=== PATIENT | female | born 1960 | race American Indian/Alaskan Native ===

== ENCOUNTER 2018-02-03 12:09 | Emergency (ER) | payer MEDICAID, OTHER ==
[2018-02-03 12:09] VITALS: BMI 40.8
[2018-02-03 12:17] VITALS: RESP 18
[2018-02-03] MEDS ORDERED: Sodium Chloride 0.9% 1,000 ML IV SCH (12:45)
--- NOTE | 2018-02-03 12:45 | ED PDOC ---
Arrival/HPI - General Historian: Patient - History of Present Illness Time/Duration: Prior to Arrival Symptom Onset: Sudden Symptom Course: Unchanged Context: Home (after eating dinner) <Waldo Stratton - Last Filed: 02/03/18 18:19> <BartReji - Last Filed: 02/03/18 22:28> - General Chief Complaint: GI Problem Time Seen by Provider: 02/03/18 12:26 - History of Present Illness Narrative History of Present Illness (Text): 02/03/18 12:40 Patient is a 57 F with history of hypertension who presents with complaints of nausea, vomiting, diarrhea, weakness, lightheadedness and chills after eating shrimp parmesan 02/01 at 8 p.m. Patient states prior to this meal she felt fine however after consuming the meal, she experienced 4 episodes of vomiting and 4- 5 episodes of diarrhea. Patient is unaware of appearance of diarrhea stating she never looked. The following day patient states she only consumed warm water and crackers which caused her to vomit 3 more times and have another 4 episodes of diarrhea. Today patient woke up and had diarrhea twice despite taking immodium. Being that she did not eat she has not vomited however remains nauseous. [employer] weak at work and decided to come to the emergency department today since this is going on the third day. (Waldo Stratton) Past Medical History - Provider Review Nursing Documentation Reviewed: Yes - Infectious Disease Hx of Infectious Diseases: None - Tetanus Immunization Tetanus Immunization: Unknown - Past Medical History Past Medical History: No Previous - Cardiac Hx Hypertension: Yes - Psychiatric Hx Depression: No Hx Emotional Abuse: No Hx Physical Abuse: No Hx Substance Use: No - Surgical History Hx Cholecystectomy: Yes (1985) - Suicidal Assessment Feels Threatened In Home Enviroment: No <Waldo Stratton - Last Filed: 02/03/18 18:19> Family/Social History - Physician Review Nursing Documentation Reviewed: Yes Family/Social History: Hypertension, Neoplasm/Cancer (mother-lung cancer) Smoking Status: Light Smoker < 10 Cigarettes Daily Hx Alcohol Use: Yes Hx Substance Use: No Hx Substance Use Treatment: No <Waldo Stratton - Last Filed: 02/03/18 18:19> Allergies/Home Meds <Waldo Stratton - Last Filed: 02/03/18 18:19> <Reji Arriaga - Last Filed: 02/03/18 22:28> Allergies/Adverse Reactions: Allergies No Known Allergies Allergy (Verified 02/03/18 12:18) Review of Systems - Physician Review All systems were reviewed & negative as marked: Yes - Review of Systems Constitutional: Normal. absent: Fevers, Night Sweats Eyes: Normal. absent: Vision Changes Respiratory: Normal. absent: SOB, Cough Cardiovascular: Normal. absent: Chest Pain, Palpitations Gastrointestinal: Abdominal Pain, Diarrhea, Nausea, Vomiting Genitourinary Female: absent: Dysuria Musculoskeletal: Normal. absent: Back Pain Neurological: Other (lightheaded). absent: Headache Endocrine: Other (feels "clammy") Hemo/Lymphatic: Normal Psychiatric: Normal <Waldo Stratton - Last Filed: 02/03/18 18:19> Physical Exam Vital Signs Reviewed: Yes Temperature: Afebrile Blood Pressure: Normal Pulse: Bradycardic Respiratory Rate: Normal Appearance: Positive for: Well-Appearing, Non-Toxic, Comfortable Pain Distress: None Mental Status: Positive for: Alert and Oriented X 3 - Systems Exam Head: Present: Atraumatic, Normocephalic Pupils: Present: PERRL Conjunctiva: Present: Normal Mouth: Present: Dry Respiratory/Chest: Present: Clear to Auscultation. No: Wheezes, Rhonchi Cardiovascular: Present: Regular Rate and Rhythm, Normal S1, S2 Abdomen: Present: Tenderness, Other (large) Upper Extremity: Present: Normal Inspection. No: Edema Lower Extremity: Present: Normal Inspection. No: Edema Neurological: Present: GCS=15, CN II-XII Intact, Speech Normal Skin: Present: Warm, Normal Color Psychiatric: Present: Alert, Oriented x 3, Normal Insight, Normal Concentration <Waldo Stratton - Last Filed: 02/03/18 18:19> Vital Signs Temp Pulse Resp BP Pulse Ox 02/03/18 18:31 98.5 F 63 18 157/90 H 100 02/03/18 18:00 65 18 145/59 L 100 02/03/18 16:07 60 18 147/57 L 100 02/03/18 15:06 61 18 121/75 99 02/03/18 13:20 59 L 18 118/71 99 02/03/18 12:25 98.0 F 58 L 18 120/74 98 02/03/18 12:14 98 F 58 L 18 120/74 98 Medical Decision Making Re-evaluation Time: 18:08 - Lab Interpretations I have reviewed the lab results: Yes Interpretation: Abnormal lab values (19.6 WBC) - RAD Interpretation Diploma Medical Assistant: Radiologist <Waldo Stratton - Last Filed: 02/03/18 18:19> <Reji Arriaga - Last Filed: 02/03/18 22:28> ED Course and Treatment: 02/03/18 12:48 Most likely food poisoning; cbc, cmp, lipase, UA, Zofran, Pepcid 02/03/18 16:36 Patient re-assessed states she is feeling better. Labs revealed elevated WBC and hypokalemia. Will replete potassium and PO challenge patient 02/03/18 18:08 Patient tolerated PO challenge, will discharge with antibiotics (Waldo Stratton) - Lab Interpretations Lab Results: 02/03/18 13:20 02/03/18 13:20 Lab Results 02/03/18 16:06: Urine Color Dark yellow, Urine Appearance Slight-cloudy, Urine pH 6.0, Ur Specific [place] >= 1.030, Urine Protein 30 H, Urine Glucose (UA) Negative, Urine Ketones 15 H, Urine Blood Trace-intact H, Urine Nitrate Negative , Urine Bilirubin Moderate H, Urine Urobilinogen 0.2, Ur Leukocyte Esterase Small H, Urine RBC 0 - 2, Urine WBC 15 - 20, Ur Epithelial Cells 0 - 2, Urine Bacteria Trace, Hyaline Casts 0 - 2 02/03/18 13:20: pO2 54, VBG pH 7.37, VBG pCO2 44.0, VBG HCO3 25.4, VBG Total CO2 26.8, VBG O2 Sat (Calc) 90.5 H, VBG Base Excess -0.2 L, VBG Potassium 3.3 L , Sodium 145.0, Chloride 110.0 H, Glucose 110 H, Lactate 1.3, FiO2 21.0, Venous Blood Potassium 3.3 L 02/03/18 13:20: Sodium 146, Chloride 110 H, Potassium 3.4 L, Carbon Dioxide 24, Anion Gap 16, BUN 21, Creatinine 1.4 H, Est GFR ( Amer) 47, Est GFR (Non- Af Amer) 38, Random Glucose 107, Calcium 9.5, Phosphorus 4.3, Magnesium 2.1, Total Bilirubin 0.6, AST 15, ALT 23, Alkaline Phosphatase 82, Total Protein 7.4 , Albumin 4.1, Globulin 3.3, Albumin/Globulin Ratio 1.2, Lipase 19 L 02/03/18 13:20: WBC 19.6 H, RBC 4.80, Hgb 14.8, Hct 44.3, MCV 92.3, MCH 30.8, MCHC 33.4, RDW 13.9, Plt Count 302, MPV 9.7, Gran % 73.6 H, Lymph % (Auto) 19.7 L, [place] % (Auto) 6.2 H, Eos % (Auto) 0.3 L, Baso % (Auto) 0.2, Gran # 14.44 H, Lymph # (Auto) 3.9 H, [place] # (Auto) 1.2 H, Eos # (Auto) 0.1, Baso # (Auto) 0.03 - RAD Interpretation Radiology Orders: 02/03/18 13:06 CHEST TWO VIEWS (PA/LAT) [RAD] Stat - Medication Orders Current Medication Orders: Discontinued Medications Famotidine (Pepcid) 20 mg IVP STAT STA Stop: 02/03/18 12:39 Last Admin: 02/03/18 13:22 Dose: 20 mg IVP Administration Document 02/03/18 13:22 SF (Rec: 02/03/18 13:22 [email or web address] Charges for Administration # of IVP Administrations 1 Sodium Chloride (Sodium Chloride 0.9%) 1,000 mls @ 100 mls/hr IV .Q10H [facility] Last Admin: 02/03/18 13:22 Dose: 100 mls/hr eMAR Start Stop Document 02/03/18 13:22 SF (Rec: 02/03/18 13:22 SF [email or web address]) Intravenous Solution Start Date 02/03/18 Start Time 13:22 Potassium Chloride (Potassium Chloride 20 Meq/100 Ml) 20 meq in 100 mls @ 50 mls/hr IVPB ONCE ONE Stop: 02/03/18 16:47 Last Admin: 02/03/18 15:47 Dose: 50 mls/hr eMAR Start Stop Document 02/03/18 15:47 OCS (Rec: 02/03/18 15:47 OCS [id number]) Intravenous Solution Start Date 02/03/18 Start Time 15:47 End Date 02/03/18 End time 17:47 Total Infusion Time 120 Lactated Ringer's (Lactated Ringer's) 1,000 mls @ 100 mls/hr IV .Q10H JUAN J Last Admin: 02/03/18 15:47 Dose: 100 mls/hr eMAR Start Stop Document 02/03/18 15:47 OCS (Rec: 02/03/18 15:48 OCS [id number]) Intravenous Solution Start Date 02/03/18 Start Time 15:48 Ondansetron HCl (Zofran Inj) 4 mg IVP STAT STA Stop: 02/03/18 12:29 Last Admin: 02/03/18 13:22 Dose: 4 mg IVP Administration Document 02/03/18 13:22 SF (Rec: 02/03/18 13:22 [email or web address] Charges for Administration # of IVP Administrations 1 Potassium Chloride (K-Dur 20 Meq Er Tab) 40 meq PO STAT STA Stop: 02/03/18 16:28 Last Admin: 02/03/18 17:09 Dose: 40 meq - PA / GENETICIST / Resident Statement /DO has reviewed & agrees with the documentation as recorded. <eRji Arriaga - Last Filed: 02/03/18 22:28> Disposition/Present on Arrival - Present on Arrival Any Indicators Present on Arrival: No History of DVT/PE: No History of Uncontrolled Diabetes: No Urinary Catheter: No History of Decub. Ulcer: No History Surgical Site Infection Following: None - Disposition Have Diagnosis and Disposition been Completed?: Yes Disposition Time: 18:09 Patient Plan: Discharge <Waldo Stratton - Last Filed: 02/03/18 18:19> <Reji Arriaga - Last Filed: 02/03/18 22:28> - Disposition Diagnosis: Gastroenteritis Disposition: HOME/ ROUTINE Condition: GOOD Discharge Instructions (ExitCare): Gastroenteritis (ED) Additional Instructions: Ms. Smith, thank you for letting us take care of you today. Your provider was Dr. Arriaga. You were treated for gastroenteritis. The emergency medical care you received today was directed at your acute symptoms. If you were prescribed any medication, please fill it and take as directed. It may take several days for your symptoms to resolve. Return to the Emergency Department if your symptoms worsen, do not improve, or if you have any other problems. Please contact your doctor or call one of the physicians/clinics you have been referred to that are listed on the Patient Visit Information form that is included in your discharge packet. Bring any paperwork you were given at discharge with you along with any medications you are taking to your follow up visit. Our treatment cannot replace ongoing medical care by a primary care provider (PCP) outside of the emergency department. Thank you for allowing the [facility] team to be part of your care today. If you had an X-Ray or CT scan: A Radiologist will review the ED reading if any change in treatment is needed we will contact you. If you had a blood, urine, or wound culture: It will take several days for the results, if any change in treatment is needed we will contact you. If you had an STI test: It will take 48 hours for the results. Please call after 1 week if you have not heard back. Prescriptions: Ciprofloxacin [Cipro] 500 mg PO DAILY 7 Days tab Famotidine [Pepcid] 20 mg PO BID #14 tab metroNIDAZOLE [Flagyl] 500 mg PO TID #21 tab Ondansetron HCl [Zofran] 4 mg PO Q8H #9 tablet Forms: [employer] (Lebanese)
[2018-02-03 13:30] LABS: BASO # 0.03 K/mm3 (0.0-2.0); BASO % 0.2 % (0.0-3.0); EOS # 0.1 (0.0-0.7); EOS % 0.3 % (1.5-5.0); GRAN # 14.44 (1.4-6.5); GRAN % 73.6 % (50.0-68.0); HEMOGLOBIN 14.8 g/dL (12.0-16.0); LYMPH # 3.9 (1.2-3.4); LYMPH % 19.7 % (22.0-35.0); MEAN CELL VOLUME 92.3 fl (80.0-105.0); MEAN CORPUSCULAR HEMOGLOBIN 30.8 pg (25.0-35.0); MEAN CORPUSCULAR HGB CONC 33.4 g/dl (31.0-37.0); MEAN PLATELET VOLUME 9.7 fl (7.0-11.0); MONO # 1.2 (0.1-0.6); MONO % 6.2 % (1.0-6.0); RBC 4.8 10^6/uL (3.5-6.1); RED CELL DISTRIBUTION WIDTH 13.9 % (11.5-14.5); WHITE BLOOD COUNT 19.6 10^3/ul (4.5-11.0)
[2018-02-03 13:34] LABS: VENOUS BLOOD GAS BASE EXCESS -0.2 mmol/L (0.0-2.0); VENOUS BLOOD GAS PO2 54 mm/Hg (30-55); VENOUS BLOOD PH 7.37 (7.32-7.43)
[2018-02-03 13:41] LABS: ALB/GLOB RATIO 1.2 (1.1-1.8); ALBUMIN 4.1 g/dL (3.0-4.8); CALCIUM 9.5 mg/dL (8.4-10.5)
--- NOTE | 2018-02-03 13:54 | RAD ---
HISTORY: abdominal pain COMPARISON: No prior. TECHNIQUE: Chest PA and lateral FINDINGS: LUNGS: No active pulmonary disease. PLEURA: No significant pleural effusion identified. No pneumothorax apparent. CARDIOVASCULAR: Normal. OSSEOUS STRUCTURES: No significant abnormalities. VISUALIZED UPPER ABDOMEN: Normal. OTHER FINDINGS: None. IMPRESSION: No active disease.
[2018-02-03] MEDS ORDERED: Lactated Ringer's 1,000 ML IV SCH (15:00)
[2018-02-03 16:07] VITALS: O2SAT 100
[2018-02-03 16:27] LABS: URINE APPEARANCE SLIGHT-CLOUDY (CLEAR); URINE BILIRUBIN MODERATE (NEGATIVE); URINE BLOOD TRACE-INTACT (NEGATIVE); URINE COLOR DARK YELLOW (YELLOW); URINE GLUCOSE (UA) NEGATIVE (NEGATIVE); URINE LEUKOCYTE ESTERASE SMALL Leu/uL (NEGATIVE); URINE PROTEIN 30 mg/dL (<30 mg/dL); URINE UROBILINOGEN 0.2 E.U./dL (<1 E.U./dL)
[2018-02-03] MEDS ORDERED: Potassium Chloride 20 mEq ER Tab PO STA (16:27)
[2018-02-03 16:29] LABS: URINE BACTERIA TRACE (NEG); URINE EPITHELIAL CELLS 0 - 2 /hpf (0-5); URINE HYALINE CAST 0 - 2 /hpf; URINE RBC 0 - 2 /hpf (0-2); URINE WBC 15 - 20 /hpf (0-6)
[2018-02-03 18:34] VITALS: BP 157/90; PULSE 63; TEMP 98.5
--- NOTE | 2018-02-04 12:59 | CARD ---
APPROVED REPORT EKG Measurement Heart [id number] <Conclusion> Sinus bradycardia ST & T wave abnormality, consider inferolateral ischemia Abnormal ECG
== END 2018-02-03 18:31 | disposition home or self-care (01) ==
LOC: ED 12:09
DX: K52.9 Noninfective gastroenteritis and colitis, unspecified (principal); F17.210 Nicotine dependence, cigarettes, uncomplicated; I10 Essential (primary) hypertension
CPT/HCPCS: 71046; 80053; 81001; 82803; 83690; 83735; 84100; 85025; 87086; 93005; 96361; 96374; 96375; 99285; J2405; J3480; J7040; J7120